=== PATIENT | female | born 1975 | race Caucasian/White ===

== ENCOUNTER 2025-07-07 15:45 | Outpatient (REF) | payer OTHER, BC, SELFPAY ==
--- OUTSIDE RECORDS SUMMARY | 2025-07-02 15:20 | XMS_ITS | Encounter Summary ---
Author Organization [facility] Address [address] [place] [address] Care Team Providers Care Word Processing Specialist Name Role Phone Lauren Choudhary MD Primary Care Provider [phone] Madalyn Peterson Unavailable Enrique Guerrier MD Unavailable [phone] Reason for Visit * ReasonCommentsperimenopause Encounter Details DateTypeDepartmentCare Team (Latest Contact Info)Poohpwecgwa32/20/2025 3:20 PM ESTOffice Visit BALTAZAR BENAVIDES [address] [place] [address] Tiffany Park PA [address] [place], [facility]11 Perimenopause; Vaginal dryness; Yeast infection; Hormone disorder; Tremor Social History Tobacco UseTypesPacks/DayYears UsedDateSmoking Tobacco: FormerCigarettes Smokeless Tobacco: NeverAlcohol UseStandard Drinks/WeekCommentsYes0 (1 standard drink = 0.6 oz pure alcohol)1-2 drinks less than monthly in the past year, Caffeine intake: 1-2 cups per [id number] Health LiteracyAnswerDate RecordedHow often do you need to have someone help you when you read instructions, pamphlets, or other written material from your doctor or pharmacy?Never 02/11/2025Humiliation, Afraid, Rape, and Kick questionnaireAnswerDate Recorded Within the last year, have you been afraid of your partner or ex-partner?No 02/11/2025Within the last year, have you been humiliated or emotionally abused in other ways by your partner or ex-partner?No02/11/2025Within the last year, have you been kicked, hit, slapped, or otherwise physically hurt by your partner or ex-partner?No02/11/2025Within the last year, have you been raped or forced to have any kind of sexual activity by your partner or ex-partner?No02/11/2025 Social Connection and Isolation PanelAnswerDate RecordedIn a typical week, how many times do you talk on the phone with family, friends, or neighbors?More than three times a week02/11/2025How often do you get together with friends or relatives?Once a week02/11/2025How often do you attend baptist or yazidism services?Never02/11/2025Do you belong to any clubs or organizations such as baptist groups, unions, fraternal or athletic groups, or school groups?Yes 02/11/2025How often do you attend meetings of the clubs or organizations you belong to?1 to 4 times per year02/11/2025re you , , , , never , or living with a partner?Cdupfyc2602/11/2025UDIT-C AnswerDate RecordedQ1: How often do you have a drink containing alcohol?2-3 times a week02/11/2025Q2: How many drinks containing alcohol do you have on a typical day when you are drinking?1 or Q3: How often do you have six or more drinks on one occasion?Never02/11/2025Overall Financial Resource Strain (CARDIA)AnswerDate RecordedHow hard is it for you to pay for the very basics like food, housing, medical care, and heating?Not very hard02/11/2025[facility] [place] of Occupational Health - Occupational Stress QuestionnaireAnswerDate RecordedDo you feel stress - tense, restless, nervous, or anxious, or unable to sleep at night because yourmind is troubled all the time - these days?To some msusqk0702/11/2025Exercise Vital SignAnswerDate RecordedOn average, how many days per week do you engage in moderate to strenuous exercise (like a brisk walk)?3 days02/11/2025On average, how many minutes do you engage in exercise at this level?60 min02/11/2025Hunger Vital SignAnswerDate RecordedWithin the past 12 months, you worried that your food would run out before you got the money to buy more.Never true02/11/2025Within the past 12 months, the food you bought just didn't last and you didn't have money to get more.Never true02/11/2025PRAPARE - TransportationAnswerDate RecordedIn the past 12 months, has lack of transportation kept you from medical appointments or from getting medications?No 02/11/2025In the past 12 months, has lack of transportation kept you from meetings, work, or from getting things needed for daily living?No02/11/2025 Housing Stability Vital SignAnswerDate RecordedIn the last 12 months, was there a time when you were not able to pay the mortgage or rent on time?No02/11/2025In the past 12 months, how many times have you moved where you were living?0 02/11/2025t any time in the past 12 months, were you homeless or living in a long-term (including now)?No02/11/2025CommentsNoSex and Gender Information ValueDate RecordedSex Assigned at EehhnWdiqnb73/10/2023 3:43 PM EDTLegal Sex Arxbwx7910/25/2022 6:52 PM EDTGender PisjjvkdEwiobe26/10/2023 3:43 PM EDTSexual RjrklczurwdRcvxspwm71/10/2023 3:43 PM EDTdocumented as of this encounter Last Filed Vital Signs Vital SignReadingTime TakenCommentsBlood Tdopbrev748/8611 3:31 PM EST Pulse--Temperature--Respiratory Rate--Oxygen Saturation--Inhaled Oxygen Concentration--Cldqjk50.4 kg (131 lb)07/02/2025 3:31 PM ESTHeight--Body Mass Index21.1407 2:28 PM EDTdocumented in this encounter Progress Notes * CHARISSA Noriega - 07/02/2025 3:20 PM EST Reason for Appointment: Patient ID: Enriqueta Man is a 50 y.o. female who presents for perimenopause Patient presents today for Perimenopause. MEDICATIONS Current Outpatient Medications Medication Instructions Aspirin Low Dose 81 mg, Every morning atomoxetine (STRATTERA) 25 mg, Oral, Daily, Swallow capsule whole; do not open. If opened accidentally, do not touch eyes; wash hands immediately (product is an eye irritant). buPROPion XL (WELLBUTRIN XL) 300 mg, Oral, Every morning carvedilol (COREG) 3.125 mg, Oral, 2 times daily with meals cholecalciferol (Vitamin D-3) 50 MCG (1999) capsule Oral, Daily Mounjaro 10 mg, Subcutaneous, Weekly Otezla 30 mg, Oral, Every 12 hours OXcarbazepine (TRILEPTAL) 600 mg, Oral, Nightly Rimegepant Sulfate (Nurtec) 75 MG tablet dispersible Take by mouth traZODone (DESYREL) 50 mg, Oral, Nightly ALLERGIES Allergies Allergen Reactions Codeine GI intolerance Nitrofurantoin Unknown PROBLEMS Active Ambulatory Problems Diagnosis Date Noted Brain aneurysm ([facility]) 01/17/2023 Chronic migraine w/o aura w/o status migrainosus, not intractable 01/17/2023 Claustrophobia 01/17/2023 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 01/17/2023 Depression 01/17/2023 Essential hypertension 01/17/2023 Hyperbilirubinemia 01/17/2023 Leukocytosis 01/17/2023 Menorrhagia with irregular cycle 01/17/2023 Mixed hyperlipidemia 01/17/2023 Psoriasis 01/17/2023 Vaginal prolapse 01/17/2023 Vitamin D deficiency 01/17/2023 Resolved Ambulatory Problems Diagnosis Date Noted No Resolved Ambulatory Problems Past Medical History: Diagnosis Date History of thyroid nodule 2007 IUD contraception 2007 Migraine headache Missed ([facility]) ([facility]) HISTORY PAST MEDICAL HISTORY SOCIAL HISTORY Past Medical History: Diagnosis Date History of thyroid nodule 2007 IUD contraception 2008 Paragard Migraine headache Missed ([facility]) x3 ([facility]) x 4 Psoriasis Social History Tobacco Use Smoking status: Former Types: Cigarettes Smokeless tobacco: Never Substance Use Topics Alcohol use: Yes Comment: 1-2 drinks less than monthly in the past year, Caffeine intake: 1-2 cups per day Drug use: Never FAMILY HISTORY Family History Problem Relation Name Age of Onset Brain Aneurysm Mother Cancer Sibling SURGICAL HISTORY Past Surgical History: Procedure Laterality Date BIOPSY negative;Disease:Thyroid nodules BREAST LUMPECTOMY 10/22/2024 SECTION, LOW TRANSVERSE 1997 DILATION AND CURETTAGE 2003 MR ANGIOGRAM HEAD WO IV CONTRAST 06/26/2019 MR ANGIOGRAM HEAD WO IV CONTRAST [facility] MR ANGIOGRAM HEAD WO IV CONTRAST 05/05/2023 MR ANGIOGRAM HEAD WO IV CONTRAST OTHER SURGICAL HISTORY 2007 PELVIC LAPAROSCOPY 2005 diagnostic VAGINAL DELIVERY 1993 REVIEW OF SYSTEMS Review of Systems: Review of Systems All other systems reviewed and are negative. OBJECTIVE Objective: Physical Exam Constitutional: Appearance: Normal appearance. She is well-developed. Cardiovascular: Rate and Rhythm: Normal rate and regular rhythm. Pulmonary: Effort: Pulmonary effort is normal. Breath sounds: Normal breath sounds. Abdominal: General: Bowel sounds are normal. There is no distension. Palpations: Abdomen is soft. Tenderness: There is no abdominal tenderness. There is no guarding or rebound. Musculoskeletal: General: No swelling. Normal range of motion. Right lower leg: No edema. Left lower leg: No edema. Neurological: Mental Status: She is alert and oriented to person, place, and time. Skin: General: Skin is warm and dry. Psychiatric: Mood and Affect: Mood normal. Behavior: Behavior normal. Vitals and nursing note reviewed. Exam conducted with a loom stop checker present. Vitals: Estimated body mass index is 21.14 kg/m?? as calculated from the following: Height as of 02/11/25: 5' 6 . Weight as of this encounter: 131 lb. BP: 130/86 No LMP recorded. Assessment/Plan ICD-10-CM 1. Perimenopause N95.1 Assessment/Plan Patient presents for Perimenopausal symptoms. Patient does have vaginal dryness, Patient encouragedto use coconut oil for this and she was advised we can do labs to see where this is at and that we do have a packet to complete and sent to [facility] and they will do a specific cream based on her answers. Patient aware we will send in Diflucan and we will do cultures at her next visit as she has been having symptoms of this for a while. Patient has noticed some tremors and she has been taking magnesium 500 she started this in March and she noticed some tremors mid day and night but not as severe. Patient states right side worse then left and she does have appointment with Neurology next week and advised to let them know about the Tremors. Patient did have weight loss with Mounjaro, in 2 1/2years has lost over 100 pounds, she is doing this every 2 weeks and she has cut back from the mounjaro. Endocrinology was discussed with patient and discussed Moungaro from Hers website. Patient to return in 1 week for annual and to review labs. Documented by Naina Garcia LPN on behalf of: CHARISSA Noriega documented in this encounter Plan of Treatment NameTypePriorityAssociated DiagnosesOrder ScheduleEstradiolLabRoutine Hormone disorder Ordered: 07/02/2025EstroneLabRoutine Hormone disorder Ordered: 07/02/2025ortisol, freeLabRoutine Hormone disorder Expected: 07/02/2025 (Approximate), Expires: 07/02/2026DHEA-sulfateLabRoutine Hormone disorder Ordered: 07/02/2025Sex hormone binding globulinLabRoutine Hormone disorder Ordered: 07/02/2025Insulin, totalLabRoutine Hormone disorder Expected: 07/02/2025 (Approximate), Expires: 07/02/2026Serotonin serumLabRoutine Hormone disorder Expected: 07/02/2025 (Approximate), Expires: 07/02/2026TSHLabRoutine Hormone disorder Ordered: 07/02/2025T4, freeLabRoutine Hormone disorder Ordered: 07/02/2025T3, reverseLabRoutine Hormone disorder Ordered: 07/02/2025ProgesteroneLabRoutine Hormone disorder Ordered: 07/02/2025Vitamin D 1,25 dihydroxyLabRoutine Hormone disorder Ordered: 07/02/2025FerritinLabRoutine Hormone disorder Ordered: 07/02/2025T3, freeLabRoutine Hormone disorder Ordered: 07/02/2025ThyroglobulinLabRoutine Hormone disorder Expected: 07/02/2025 (Approximate), Expires: 07/02/2026Thyroglobulin AntibodyLab Routine Hormone disorder Expected: 07/02/2025 (Approximate), Expires: 07/02/2026Thyroid peroxidase antibodyLabRoutine Hormone disorder Ordered: 07/02/20252740R9KnnOaskuit Hormone disorder Expected: 07/02/2025 (Approximate), Expires: 07/02/2026TESTOSTERONE, FREELab Routine Hormone disorder Ordered: 07/02/2025Testosterone, free, totalLabRoutine Hormone disorder Ordered: 07/02/2025Hemoglobin V1fKxwRnvekqy Hormone disorder Ordered: 07/02/2025Glucose, randomLabRoutine Hormone disorder Expected: 07/02/2025 (Approximate), Expires: 07/02/2026-peptideLabRoutine Hormone disorder Expected: 07/02/2025 (Approximate), Expires: 07/02/2026documented as of this encounter Procedures Procedure NamePriorityDate/TimeAssociated DiagnosisCommentsPAP TEST, EXTERNAL Hdnscov4306/11/2019 12:00 AM EDTdocumented in this encounter Results * PAP TEST, EXTERNAL (06/11/2019 12:00 AM EDT) Narrative Authorizing ProviderResult TypeResult StatusLauren Choudhary MDLAB CYTOLOGY ORDERABLESFinal ResultPerforming OrganizationAddressCity/State/ZIP CodePhone Number EXTERNAL LAB documented in this encounter Visit Diagnoses Diagnosis Perimenopause Symptomatic menopausal or female climacteric states Vaginal dryness Postmenopausal atrophic vaginitis Yeast infection Hormone disorder Unspecified endocrine disorder Tremor Abnormal involuntary movements documented in this encounter Care Teams Team MemberRelationshipSpecialtyStart DateEnd Date Lauren Choudhary MD [address] [place] [address] PCP - GeneralFamily Medicine12/19/22 Madalyn Peterson PA [address] [place] [address] Physician AssistantNeurology1/ Enrique Guerrier MD [address] [place] [address] Referring PhysicianNeurology1/documented as of this encounter
--- OUTSIDE RECORDS SUMMARY | 2025-07-07 10:00 | XMS_ITS | Encounter Summary ---
Author Organization [facility] Address [address] [place] [address] Care Team Providers Care Hard Metals Hand Engraver Name Role Phone Lauren Choudhary MD Primary Care Provider [phone] Madalyn Peterson Unavailable Enrique Guerrier MD Unavailable [phone] Reason for Visit * ReasonCommentsWell Women Visit Encounter Details DateTypeDepartmentCare Team (Latest Contact Info)Nhmzxxcjubm30/25/2025 10:00 AM ESTProcedure Visit BALTAZAR BENAVIDES [address] [place] [address] Tiffany Park PA [address] [place], [facility]11 Well woman exam with routine gynecological exam; Postmenopausal state; Exposure to STD; Vaginal discharge Social History Tobacco UseTypesPacks/DayYears UsedDateSmoking Tobacco: FormerCigarettes Smokeless Tobacco: NeverAlcohol UseStandard Drinks/WeekCommentsYes0 (1 standard drink = 0.6 oz pure alcohol)1-2 drinks less than monthly in the past year, Caffeine intake: 1-2 cups per [id number] Health LiteracyAnswerDate RecordedHow often do you need [...] week02/11/2025How often do you attend baptist or adventism services?Never02/11/2025Do you belong to any clubs or organizations such as baptist groups, unions, fraternal or athletic groups, or school groups?Yes 02/11/2025How often do you attend meetings of the clubs or organizations you belong to?1 to 4 times per year02/11/2025re you , , , , never , or living with a partner?Yomnrnw9402/11/2025UDIT-C AnswerDate RecordedQ1: How often do you have [...] food, housing, medical care, and heating?Not very hard02/11/2025[facility] [place] of Occupational Health - Occupational Stress QuestionnaireAnswerDate RecordedDo you feel stress - tense, restless, nervous, or anxious, or unable to sleep at night because yourmind is troubled all the time - these days?To some lwqeki4202/11/2025Exercise Vital SignAnswerDate RecordedOn average, how many days [...] were you homeless or living in a detention (including now)?No02/11/2025CommentsNoSex and Gender Information ValueDate RecordedSex Assigned at MhdffAikrxy84/10/2023 3:43 PM EDTLegal Sex Tonhre4310/25/2022 6:52 PM EDTGender MeloqmtdFrchan00/10/2023 3:43 PM EDTSexual CeauptdygahExjdptly05/10/2023 3:43 PM EDTdocumented as of this encounter Last Filed Vital Signs Vital SignReadingTime TakenCommentsBlood Aaoadvwn107/9007/07/2025 10:25 AM EST Pulse--Temperature--Respiratory Rate--Oxygen Saturation--Inhaled Oxygen Concentration--Kbeqvv34.2 kg (130 lb 8 oz)07/07/2025 10:25 AM ESTHeight--Body Mass Index21.0607 2:28 PM EDTdocumented in this encounter Progress Notes * CHARISSA Noriega - 07/07/2025 10:00 AM EST Reason for Appointment: Patient ID: Enriqueta Man is a 50 y.o. female who presents for [facility] Women Visit Patient presents today for Annual Exam. MEDICATIONS Current Outpatient Medications Medication Instructions Aspirin [...] D-3) 50 MCG (1999) capsule Oral, Daily magnesium (as gluconate) (MAGONATE) 27 mg, 2 times daily Mounjaro 10 mg, Subcutaneous, Weekly Otezla 30 mg, Oral, Every 12 hours OXcarbazepine (TRILEPTAL) 600 mg, Oral, Nightly Rimegepant Sulfate (Nurtec) 75 MG tablet dispersible Take by mouth traZODone (DESYREL) 50 mg, Oral, Nightly ALLERGIES Allergies Allergen Reactions Codeine GI intolerance Nitrofurantoin Unknown PROBLEMS Active Ambulatory Problems Diagnosis Date Noted Brain aneurysm ([facility]) 01/17/2023 Chronic migraine w/o aura w/o status [...] 2007 IUD contraception 2007 Migraine headache Missed ([facility]) ([facility]) HISTORY PAST MEDICAL HISTORY SOCIAL HISTORY Past Medical History: Diagnosis Date Brain aneurysm ([facility]) History of thyroid nodule 2008 IUD contraception 2008 Paragard Migraine headache Missed ([facility]) x3 ([facility]) x 4 Psoriasis Social History Tobacco Use [...] SYSTEMS Review of Systems: Review of Systems Constitutional: Negative. HENT: Negative. Eyes: Negative. Respiratory: Negative. Cardiovascular: Negative. Gastrointestinal: Negative. Genitourinary: Negative. Musculoskeletal: Negative. Skin: Negative. Neurological: Negative. All other systems reviewed and are negative. Hematological: Negative. Endocrine: Negative. Allergic/Immunologic: Negative. OBJECTIVE Objective: Physical Exam Constitutional: Appearance: Normal appearance. She is well-developed. Genitourinary: Vulva normal. Right Adnexa: not tender and no mass present. Left Adnexa: not tender and no mass present. No cervical discharge. Breasts: Breasts are soft. Right: Normal. Left: Normal. HENT: Head: Normocephalic. Nose: Nose normal. Mouth/Throat: Mouth: Mucous membranes are moist. Cardiovascular: Rate and Rhythm: Normal rate and regular rhythm. Pulmonary: Effort: Pulmonary effort is normal. Breath sounds: Normal breath sounds. Abdominal: General: Bowel sounds are normal. There is no distension. Palpations: Abdomen is soft. Tenderness: There is no abdominal tenderness. There is no guarding or rebound. Musculoskeletal: General: No swelling. Normal range of motion. Cervical back: Normal range of motion. Right lower leg: No edema. Left lower leg: No edema. Neurological: General: No focal deficit present. Mental Status: She is alert and oriented to person, place, and time. Skin: General: Skin is warm and dry. Psychiatric: Mood and Affect: Mood normal. Behavior: Behavior normal. Vitals and nursing note reviewed. Exam conducted with a heat and frost insulator helper present. Vitals: Estimated body mass index is 21.14 kg/m?? as calculated from the following: Height as of 02/11/25: 5' 6 . Weight as of 07/02/25: 131 lb. BP: No LMP recorded. Patient is perimenopausal. Assessment/Plan ICD-10-CM 1. Well woman exam with routine gynecological exam Z01.419 THIN PREP TIS PAP AND HR HPV DNA 2. Postmenopausal state Z78.0 DEXA bone density Assessment/Plan Annual Exam: Patient presents today for an annual exam. Patient states she is doing well and has no complaints. Pap was obtained without difficulty. Cultures obtained today without difficulty. Patient is advised we are waiting on some of her labs from [facility] reviewed labs with patient that we have on fine. Orders Placed This Encounter Procedures DEXA bone density Follow Up: Patient is to return in one year for annual unless needed otherwise. Documented by Naina Garcia LPN on behalf of: CHARISSA Noriega documented in this encounter Plan of Treatment NameTypePriorityAssociated DiagnosesOrder ScheduleDEXA bone densityImaging Routine Postmenopausal state Expected: 07/07/2025 (Approximate), Expires: 07/07/2026THIN PREP TIS PAP AND HR HPV DNAPathology and CytologyRoutine Well woman exam with routine gynecological exam Ordered: 07/07/2025SURESWAB(R) ADVANCED VAGINITIS PLUS, TMAPathology and CytologyRoutine Vaginal discharge Ordered: 07/07/2025HLAMYDIA TRACHOMATIS (GENITO/STI)LabRoutine Exposure to STD Ordered: 07/07/2025Neisseria gonorrhea DNA probe, directLabRoutine Exposure to STD Ordered: 07/07/2025documented as of this encounter Visit Diagnoses Diagnosis Well woman exam with routine gynecological exam Routine gynecological examination Postmenopausal state Asymptomatic postmenopausal status (age-related) (natural) Exposure to STD Vaginal discharge Leukorrhea, not specified as infective documented in this encounter Care Teams Team MemberRelationshipSpecialtyStart DateEnd Date Lauren Choudhary MD [address] [place] [address] PCP - GeneralFamily Medicine12/19/22 Madalyn Peterson PA [address] [place] [address] Physician AssistantNeurology1/ Enrique Guerrier MD [address] [place] [address] Referring PhysicianNeurology1/documented as of this encounter
--- OUTSIDE RECORDS SUMMARY | 2025-07-07 15:54 | XMS_ITS | Encounter Summary ---
Author Organization [facility] Address [address] [place] [address] Care Team Providers Care Prison Librarian Name Role Phone Lauren Choudhary MD Primary Care Provider [phone] Madalyn Peterson Unavailable Enrique Guerrier MD Unavailable [phone] Encounter Details DateTypeDepartmentCare Team (Latest Contact Info)Ilabtmdxjtd57/24/2025Travel Social History Tobacco UseTypesPacks/DayYears UsedDateSmoking Tobacco: FormerCigarettes Smokeless Tobacco: NeverAlcohol UseStandard Drinks/WeekCommentsYes0 (1 standard drink = 0.6 oz pure alcohol)1-2 drinks less than monthly in the past year, Caffeine intake: 1-2 cups per [id number] Health LiteracyAnswerDate RecordedHow often do you need [...] relatives?Once a week02/11/2025How often do you attend denominational or rastafari services?Never02/11/2025Do you belong to any clubs or organizations such as denominational groups, unions, fraMyGeekDay or athletic groups, or school groups?Yes 02/11/2025How often do you attend meetings of the clubs or organizations you belong to?1 to 4 times per year02/11/2025re you , , , , never , or living with a partner?Ulahzng5102/11/2025UDIT-C AnswerDate RecordedQ1: How often do you have [...] care, and heating?Not very hard02/11/2025[facility] [place] of [facility] Health - Occupational Stress QuestionnaireAnswerDate RecordedDo you feel stress - tense, restless, nervous, or anxious, or unable to sleep at night because yourmind is troubled all the time - these days?To some ibdsgu0102/11/2025Exercise Vital SignAnswerDate RecordedOn average, how many days [...] were you homeless or living in a intermediate (including now)?No02/11/2025CommentsNoSex and Gender Information ValueDate RecordedSex Assigned at AatiqChspzl48/10/2023 3:43 PM EDTLegal Sex Cczona2610/25/2022 6:52 PM EDTGender IrwouoxdQkdawh65/10/2023 3:43 PM EDTSexual AeqrormhoaiFkvmzobb73/10/2023 3:43 PM EDTdocumented as of this encounter Plan of Treatment Not on file documented as of this encounter Visit Diagnoses Not on filedocumented in this encounter Care Teams Team MemberRelationshipSpecialtyStart DateEnd Date Lauren Choudhary MD [address] [place] [address] PCP - GeneralFamily Medicine12/19/22 Madalyn Peterson PA [address] [place] [address] Physician AssistantNeurology1 Enrique Guerrier MD [address] [place] [address] Referring PhysicianNeurology1/documented as of this encounter
--- OUTSIDE RECORDS SUMMARY | 2025-07-07 15:54 | XMS_ITS | Clinical Summary ---
Author Organization [facility] Address [address], [address] [place] [address] Care Team Providers Care Wide Area Network Administrator Name Role Phone Lauren Choudhary MD Primary Care Provider [phone] Allergies Active AllergyReactionsCriticalityNoted DateCommentsCodeineNausea Only09/30/2024 NitrofurantoinOther (See Comments)High09/30/2024 Liver failure Oxycodone-DbommjqraqghgKbzusrxgp34/18/2025 Medications MedicationSigDispense QuantityRefillsLast FilledStart DateEnd DateStatus Apremilast (OTEZLA) 30 MG TABS Take 300 mg by mouth in the morning and 300 mg in the evening.Active ASPIRIN 81 PO Take 81 mg by mouth daily09/16/2022ctive buPROPion (WELLBUTRIN XL) 150 MG extended release tablet Take 1 tablet by mouth every tfqxxzi1411/08/2023ctive vitamin D (VITAMIN D3) 50 MCG (1999) CAPS capsule Take 50 mcg by mouth daily07/01/2024ctive OXcarbazepine (TRILEPTAL) 300 MG tablet Take 1 tablet by mouthActive rimegepant sulfate (NURTEC) 75 MG TBDP Take 75 mg by mouth as neededActive Tirzepatide (MOUNJARO) 10 MG/0.5ML SOAJ Inject 10 mg into the skin once a week06/23/2024ctive traZODone (DESYREL) 50 MG tablet Take 1 tablet by mouth nightlyActive Social History Tobacco UseTypesPacks/DayYears UsedDateSmoking Tobacco: Never Assessed CommentsUnknownSex and Gender InformationValueDate RecordedSex Assigned at Pmzryo6609/24/2024 9:59 AM ESTLegal RjgGfibeg00/12/2025 9:58 AM ESTGender Identity Njtmww5809/24/2024 9:59 AM ESTSexual AretiukjpenRhoxxljj58/15/2025 9:27 PM EST Last Filed Vital Signs Vital SignReadingTime TakenCommentsBlood Cjuvqvss424/9109/30/2024 9:39 AM EST Dwkab30805/18/2025 9:39 AM ESTTemperature--Respiratory Mtjs1233 9:39 AM ESTOxygen Saturation--Inhaled Oxygen Concentration--Weight--Height--Body Mass Index-- Plan of Treatment Health MaintenanceDue DateLast DoneCommentsDepression Inrgkx0104/14/1987HIV screen 1990Hepatitis C nacpgo1704/14/1993DTaP/Tdap/Td vaccine (1 - Tdap)1994 Hepatitis B vaccine (1 of 3 - 19+ 3-dose series)1994Pap smear1996 Cervical cancer zpgttb4504/14/2005HPV (without or with Pap)2005Lipids 04/14/20159536Feyqitmtulm23/02/2020Colorectal Cancer Oopdse9804/14/2020FIT/FOBT: Average risk2020Fecal-DNA (Cologuard): Average risk2020 Sigmoidoscopy/CT rlgjvvbohwji20/02/2020Breast cancer roaxvi02/10/2021, 07/02/2020, 08/09/2018Flu vaccine (#1)COVID-19 Vaccine ( - 2023- season)2025Pneumococcal 50+ years Vaccine (1 of 1 - PCV)2025 Shingles vaccine (1 of 2)2025Hepatitis A vaccineAged OutNo longer eligible based on patient's age to complete this topicHib vaccineAged OutNo longer eligible based on patient's age to complete this topicMeningococcal (ACWY) vaccineAged OutNo longer eligible based on patient's age to complete this topic Meningococcal B vaccineAged OutNo longer eligible based on patient's age to complete this topicPolio vaccineAged OutNo longer eligible based on patient's age to complete this topic Insurance Care Teams Team MemberRelationshipSpecialtyStart DateEnd Date Lauren Choudhary MD [address] [place] [address] [facility]
--- OUTSIDE RECORDS SUMMARY | 2025-07-07 15:54 | XMS_ITS | Clinical Summary ---
Author Organization [employer] Address [id number] [address] [place] [address] Care Team Providers Care Station Worker Name Role Phone Unavailable Primary Care Provider Unavailabl e Allergies Active AllergyReactionsCriticalityNoted DateCommentsCodeineNausea And Vomiting, Other (See Comments)05/02/2022Nitrofurantoin Monohyd/M-Cryst05/02/2022 Other reaction(s): ALYSE Medications MedicationSigDispense QuantityRefillsLast FilledStart DateEnd DateStatus OTEZLA 30 mg tablet Take 1 tablet (30 mg total) by mouth in the morning and 1 tablet (30 mg total) before bedtime.09/09/2022ctive buPROPion XL (WELLBUTRIN XL) 150 mg 24 hr tablet 08/21/2022ctive carvediloL (COREG) 3.125 mg tablet Take 1 tablet (3.125 mg total) by mouth in the morning and 1 tablet (3.125 mg total) in the evening. Take with meals.07/30/2022ctive VITAMIN D3 50 mcg (2,000 unit) capsule Take 1 capsule (2,000 Units total) by mouth in the morning.08/08/2022ctive OXcarbazepine (TRILEPTAL) 600 mg tablet Take 0.5 tablets (300 mg total) by mouth nightly.08/30/2022ctive MOUNJARO 7.5 mg/0.5 mL pen injector Inject 10 mg under the skin once a week.09/14/2022ctive traZODone (DESYREL) 50 mg tablet 07/31/2022ctive acetaminophen (TYLENOL) 325 mg tablet Take 2 tablets (650 mg total) by mouth every 6 (six) hours as needed for pain. 30 tablet 11/07/2022ctive Additional Information Patient not taking.Reported on 02/17/2025 calcipotriene-betamethasone (ENSTILAR) 0.005-0.064 % foam 02/09/2023ctive NURTEC ODT 75 mg tablet,disintegrating 08/10/2023ctive aspirin 81 mg Take 1 tablet (81 mg total) by mouth.Active atomoxetine (STRATTERA) 25 mg capsule Take 1 capsule (25 mg total) by mouth in the morning.5Active Active Problems ProblemNoted DateDiagnosed DateCerebral drybwjdo01/16/2025rain aneurysm 01/17/2023Menorrhagia with irregular cycle01/17/2023Vaginal zjeqfzvz08/07/2023 Unruptured cerebral kywxnply99/07/2023lass 1 ozarkxt5701/30/2022Non-refractory chronic migraine without aura108/14/2020eformity of metatarsal bone of right foot11/15/20204703Zqahrgkobfjlbq82/11/2019Morbid kwgyosy2608/19/2018Vitamin D elpbsyxixq41/24/9097Hzplymkwyspm07/03/9551Nwcetuiwhwasrxiydx04/26/2017Psoriasis 10/27/2016Essential egmttejhjwkv18/29/2015Mixed bnhwixgcnryusq67/23/2015 Njrbbqpihg07/23/1043Nntivsshstby60/23/2015 Immunizations ImmunizationAdministration DatesNext DueInfluenza, Injectable, quadrivalent (PF) 06/05/2018 Social History Tobacco UseTypesPacks/DayYears UsedDateSmoking Tobacco: FormerCigarettes Smokeless Tobacco: Never Tobacco Cessation:Counseling Given: Not Answered Alcohol UseStandard Drinks/WeekCommentsYes0 (1 standard drink = 0.6 oz pure alcohol)occPHQ-2AnswerDate RecordedTotal Iuvwc166hildcareAnswerDate OwggboyaCyhzhtiadZfihmis37/10/2019EmploymentAnswerDate RecordedEmploymentUnknown 01/20/2019CommentsNoSex and Gender InformationValueDate RecordedSex Assigned at XgnreQwkwwi10/08/2023 3:56 PM ESTLegal GwtEhlyod96/04/2015 4:08 PM EDTGender ZerttrhqWmjqwk27/08/2023 3:56 PM ESTSexual OrientationStraight 09/20/2022 3:56 PM EST Last Filed Vital Signs Vital SignReadingTime TakenCommentsBlood Igogjjsh287/9702/17/2025 3:41 PM EDT Vlpdf5047/08/2025 3:41 PM CRPUvsuluiagpp31.6 ??C (97.8 ??F)02/17/2025 2:00 PM EDTRespiratory Tbgs918802/17/2025 3:24 PM EDTOxygen Glotapljhw808%02/17/2025 3:24 PM EDTInhaled Oxygen Concentration--Fiiwqo90.8 kg (145 lb 1 oz)02/17/2025 10:23 AM DPPGjlvzx525.6 cm (5' 5.98 )02/17/2025 10:23 AM EDTBody Mass Index23.43 02/17/2025 10:23 AM EDT Plan of Treatment Health MaintenanceDue DateLast DoneCommentsDTaP,Tdap and Td Vaccines (1 - Tdap) 1994Pap Smear1996Depression Eyfspgeao86/05/2023Tobacco Qsyczqlga97/Influenza Bghnjhm31/Zoster (Shingles) Vaccine (1 of 2)2025dult BMI [id number] Medical Devices ImplantedTypeAreaManufacturerDevice IdentifierShelf Expiration DateModel / Serial / LotCoil Embl 8cm 3mm .0108in - [id number] Implanted:Qty: 1 on 11/06/2022 by [facility] MDTR NEUR F/NEURO [id number] / / [id number] Intrcran 21mm 4mm Nrfrm Atls Strl Lf Rpl [id number] - [id number] Implanted:Qty: 1 on 11/06/2022 by Sweta Raymond MD at [facility] [id number] / / Stent Intrcran 24mm 4mm Nrfrm Atls Strl Lf Rpl [id number] - [id number] Implanted:Qty: 1 on 11/06/2022 by Sweta Raymond MD at [facility] [id number] / / [id number] Insurance Advance Directives * Full Code (Latest Code Status on File) Date ActivatedDate InactivatedComments11/06/2022 3:12 PM11/07/2022 5:00 PM
--- OUTSIDE RECORDS SUMMARY | 2025-07-07 15:55 | XMS_ITS | Encounter Summary ---
Author Organization [facility] Address [address] [place] [address] Care Team Providers Care Navigation Teacher Name Role Phone Lauren Choudhary MD Primary Care Provider [phone] Madalyn Peterson Unavailable Enrique Guerrier MD Unavailable [phone] Encounter Details DateTypeDepartmentCare Team (Latest Contact Info)Httxqpznncx11/24/2025bstract [facility] [address] [address] Tiffany Park PA [address] [place], [facility] Social History Tobacco UseTypesPacks/DayYears UsedDateSmoking Tobacco: FormerCigarettes Smokeless Tobacco: NeverAlcohol UseStandard Drinks/WeekCommentsYes0 (1 standard drink = 0.6 oz pure alcohol)1-2 drinks less than monthly in the past year, Caffeine intake: 1-2 cups per [id number] Health LiteracyAnswerDate RecordedHow often do you need [...] relatives?Once a week02/11/2025How often do you attend mandaen or adventist services?Never02/11/2025Do you belong to any clubs or organizations such as mandaen groups, unions, fraSpartan Bioscience or athletic groups, or school groups?Yes 02/11/2025How often do you attend meetings of the clubs or organizations you belong to?1 to 4 times per year02/11/2025re you , , , , never , or living with a partner?Sfrrvvx9402/11/2025UDIT-C AnswerDate RecordedQ1: How often do you have [...] food, housing, medical care, and heating?Not very hard02/11/2025[employer] [place] [employer]ational [employer] - Occupational Stress QuestionnaireAnswerDate RecordedDo you feel stress - tense, restless, nervous, or anxious, or unable to sleep at night because yourmind is troubled all the time - these days?To some zxncaa2002/11/2025Exercise Vital SignAnswerDate RecordedOn average, how many days [...] were you homeless or living in a halfway (including now)?No02/11/2025CommentsNoSex and Gender Information ValueDate RecordedSex Assigned at LowvbOdhdcq52/10/2023 3:43 PM EDTLegal Sex Rpfcaq2710/25/2022 6:52 PM EDTGender SiegnvkpMawwzc58/10/2023 3:43 PM EDTSexual JsbbktvyctlMyqunhnz34/10/2023 3:43 PM EDTdocumented as of this encounter Plan of Treatment Not on file documented as of this encounter Visit Diagnoses Not on filedocumented in this encounter Care Teams Team MemberRelationshipSpecialtyStart DateEnd Date Lauren Choudhary MD [address] [place] [address] PCP - GeneralFamily Medicine12/19/22 Madalyn Peterson PA [address] [place] [address] Physician AssistantNeurology1/ Enrique Guerrier MD [address] [place] [address] Referring PhysicianNeurology1/documented as of this encounter
--- OUTSIDE RECORDS SUMMARY | 2025-07-07 15:55 | XMS_ITS | Encounter Summary ---
Author Organization [facility] Address [address] [place] [address] Care Team Providers Care Salesperson New Cars Name Role Phone Lauren Choudhary MD Primary Care Provider [phone] Madalyn Peterson Unavailable Enrique Guerrier MD Unavailable [phone] Encounter Details DateTypeDepartmentCare Team (Latest Contact Info)Hyqxfygcmey90/24/2025Telephone [facility] [address] [address] Tiffany Park PA [address] [place], [facility]11 Social History Tobacco UseTypesPacks/DayYears UsedDateSmoking Tobacco: FormerCigarettes Smokeless Tobacco: NeverAlcohol UseStandard Drinks/WeekCommentsYes0 (1 standard drink = 0.6 oz pure alcohol)1-2 drinks less than monthly in the past year, Caffeine intake: 1-2 cups per [id number] Health LiteracyAnswerDate RecordedHow often do you need [...] relatives?Once a week02/11/2025How often do you attend bahai or synagogue services?Never02/11/2025Do you belong to any clubs or organizations such as bahai groups, unions, fraContextbroker or athletic groups, or school groups?Yes 02/11/2025How often do you attend meetings of the clubs or organizations you belong to?1 to 4 times per year02/11/2025re you , , , , never , or living with a partner?Fkvucte8902/11/2025UDIT-C AnswerDate RecordedQ1: How often do you have [...] housing, medical care, and heating?Not very hard02/11/2025[employer] [place] [employer] Occupational Health - Occupational Stress QuestionnaireAnswerDate RecordedDo you feel stress - tense, restless, nervous, or anxious, or unable to sleep at night because yourmind is troubled all the time - these days?To some vjombh2102/11/2025Exercise Vital SignAnswerDate RecordedOn average, how many days [...] were you homeless or living in a usp (including now)?No02/11/2025CommentsNoSex and Gender Information ValueDate RecordedSex Assigned at CozgaKoovij00/10/2023 3:43 PM EDTLegal Sex Dsveut5410/25/2022 6:52 PM EDTGender PdfdyztwRplopa09/10/2023 3:43 PM EDTSexual ZxfimgnzzehJjiixkpc19/10/2023 3:43 PM EDTdocumented as of this encounter Miscellaneous Notes * Telephone Encounter - Naina Garcia LPN - 07/07/2025 8:44 AM EST [place] [facility] [place] and asked if labs are back and these are pending at this time. Not placed on patient chart. * Telephone Encounter - Naina Garcia LPN - 07/06/2025 11:12 AM EST I have an appointment tomorrow with Tiffany. I have labs that were done. I was in I seen her on , she ordered lab work, which I had done Sunday at [facility]. It was recommended that I call today and verify yes, they were drawn on Sunday at [facility] because your office may need to make contact with them in order to get the results by tomorrow, I believe for my appointment. So that is all I was doing calling to inform that those were done Sunday morning. If you move anything further,my numbers [phone]. Thank you. Called and spoke with [facility] [place] regards to [place] and these are not all back at this time. Patient was called and made aware of this and will continue to follow up on these. PVU documented in this encounter Plan of Treatment Not on file documented as of this encounter Visit Diagnoses Not on filedocumented in this encounter Care Teams Team MemberRelationshipSpecialtyStart DateEnd Date Lauren Choudhary MD [address] [place] [address] PCP - GeneralFamily Medicine12/19/22 Madalyn Peterson PA [address] [place] [address] Physician AssistantNeurology1 Enrique Guerrier MD [address] [place] [address] Referring PhysicianNeurology1/documented as of this encounter
--- OUTSIDE RECORDS SUMMARY | 2025-07-07 15:55 | XMS_ITS | Clinical Summary ---
Author Organization [facility] Address [address] [place] [address] Care Team Providers Care Adoption Manager Name Role Phone Lauren Choudhary MD Primary Care Provider [phone] Madalyn Peterson Unavailable Enrique Guerrier MD Unavailable [phone] Allergies Active AllergyReactionsCriticalityNoted DateCommentsCodeineGI intolerance 01/17/20235262MuilqntdxpclbqHwyghzn38/07/2023 Medications MedicationSigDispense QuantityRefillsLast FilledStart DateEnd DateStatus Aspirin Low Dose 81 MG EC tablet Take 81 mg by mouth in the morning.Active Rimegepant Sulfate (Nurtec) 75 MG tablet dispersible Take by mouthActive atomoxetine (Strattera) 25 MG capsule Indications:Attention deficit hyperactivity disorder (ADHD), unspecified ADHD typeTake 1 capsule (25 mg) by mouth Daily Swallow capsule whole; do not open. If opened accidentally, do not touch eyes; wash hands immediately (product is an eye irritant). 30 capsule 5Active carvedilol (Coreg) 3.125 MG tablet Indications:Essential hypertensionTake 1 tablet (3.125 mg) by mouth in the morning and 1 tablet (3.125 mg) in the evening. Take with meals. 180 tablet /6Active apremilast (Otezla) 30 MG tablet Indications:Chronic migraine w/o aura w/o status migrainosus, not intractable Take 1 tablet (30 mg) by mouth every 12 (twelve) hours 180 tablet /ctive OXcarbazepine (Trileptal) 600 MG tablet Indications:Chronic migraine w/o aura w/o status migrainosus, not intractable Take 1 tablet (600 mg) by mouth at bedtime 90 tablet /ctive traZODone (Desyrel) 50 MG tablet Indications:AnxietyTake 1 tablet (50 mg) by mouth at bedtime 90 tablet //ctive buPROPion XL (Wellbutrin XL) 300 MG 24 hr tablet Indications:AnxietyTake 1 tablet (300 mg) by mouth in the morning. 90 tablet 6Active Tirzepatide (Mounjaro) 10 MG/0.5ML solution auto-injector Indications:Essential hypertensionInject 10 mg under the skin 1 (one) time per week 2 mL 5Active cholecalciferol (Vitamin D-3) 50 MCG (1999 UT) capsule Indications:Vitamin D deficiencyTAKE 1 CAPSULE DAILY 90 capsule 5Active magnesium, as gluconate, (Magonate) 500 (27 Mg) MG tablet Take 27 mg by mouth in the morning and 27 mg before bedtime.Active Enstilar 0.005-0.064 % foam Discontinued fluconazole (Diflucan) 150 MG tablet Indications:Yeast infectionTake 1 tablet (150 mg) by mouth 1 (one) time for 1 dose This is a 1 time dose, take single tablet by mouth. 1 tablet Expired Active Problems ProblemNoted DateDiagnosed DateBrain aneurysm ([facility])01/17/2023hronic migraine w/o aura w/o status migrainosus, not sbcwnfehxcp94/07/2023 Gmobwyznnstgqo51/07/2023eformity of metatarsal bone of right foot01/17/2023 Ngzcrzdhkr40/07/2023Essential koyzcbrhnglk21/07/2577Pyqcfwjvunacippstb05/07/2023 Txnzejoyxelh05/07/2023Menorrhagia with irregular cycle01/17/2023Mixed wfgttrckjlbywy97/07/6581Okrcdmccr47/07/2023Vaginal piryaguv62/07/2023Vitamin D tplpcttryn45/07/2023 Encounters DateTypeDepartmentCare WkjvKwxxbwajbmg33/25/2025 10:00 AM ESTProcedure Visit [facility] [address] [place] [address] Tiffany Park PA Well woman exam with routine gynecological exam; Postmenopausal state; Exposure to STD; Vaginal pfgyowmod98/25/2025amboo flowsheet [facility] [address] [facility] [place] [address] Tiffany Park PA 07/06/2025Telephone [facility] [address] [facility] [place] [address] Tiffany Park PA 07/06/20255591Fcyelq55/24/2025bstract [facility] [address] [facility] [place] [address] Tiffany Park PA 07/02/2025 3:20 PM ESTOffice Visit [facility] [address] [facility] [place] [address] Tiffany Park PA Perimenopause; Vaginal dryness; Yeast infection; Hormone disorder; Dyaqxd9407/02/2025amboo flowsheet [facility] [address] [facility] [place] [address] Tiffany Park PA 06/30/20252068Zwnajn75/22/2025Refill [facility] [address] [place] [id number] Lauren Choudhary MD Vitamin D deficiencyfrom Last 3 Months Immunizations ImmunizationAdministration DatesNext DueInfluenza, injectable, quadrivalent, preservative free06/05/2018 Family History Medical HistoryRelationNameCommentsBrain AneurysmMotherCancerSiblingRelationName StatusCommentsDaughter3, healthyMotherDeceasedSiblingSon1 Social History Tobacco UseTypesPacks/DayYears UsedDateSmoking Tobacco: FormerCigarettes Smokeless Tobacco: NeverAlcohol UseStandard Drinks/WeekCommentsYes0 (1 standard drink = 0.6 oz pure alcohol)1-2 drinks less than monthly in the past year, Caffeine intake: 1-2 cups per [id number] Health LiteracyAnswerDate RecordedHow often do you need [...] relatives?Once a week02/11/2025How often do you attend moravian or alevism services?Never02/11/2025Do you belong to any clubs or organizations such as moravian groups, unions, fraternal or athletic groups, or school groups?Yes 02/11/2025How often do you attend meetings of the clubs or organizations you belong to?1 to 4 times per year02/11/2025re you , , , , never , or living with a partner?Ekewmuu3602/11/2025UDIT-C AnswerDate RecordedQ1: How often do you have [...] food, housing, medical care, and heating?Not very hard02/11/2025[facility] of Occupational Health - Occupational Stress QuestionnaireAnswerDate RecordedDo you feel stress - tense, restless, nervous, or anxious, or unable to sleep at night because yourmind is troubled all the time - these days?To some pqjujs9702/11/2025Exercise Vital SignAnswerDate RecordedOn average, how many days [...] were you homeless or living in a long term (including now)?No02/11/2025CommentsNoSex and Gender Information ValueDate RecordedSex Assigned at QztomUxoeuv66/05/2023 3:43 PM EDTLegal Sex Keuncz8110/25/2022 6:52 PM EDTGender JyqarqggLceowu03/10/2023 3:43 PM EDTSexual KyyeeoyvxrfKyzedhef57/10/2023 3:43 PM EDT Last Filed Vital Signs Vital SignReadingTime TakenCommentsBlood Wkydmnxq483/9007/07/2025 10:25 AM EST Okhhz528402/11/2025 2:28 PM XEROcehzaflpgw73.1 ??C (98.7 ??F)02/11/2025 2:28 PM EDTRespiratory Nmxt561609/09/2024 3:00 PM ESTOxygen Djzgselnaw62%02/11/2025 2:28 PM EDTInhaled Oxygen Concentration--Qkwzsm54.2 kg (130 lb 8 oz)07/07/2025 10:25 AM QEJQpinbb767.6 cm (5' 6 )02/11/2025 2:28 PM EDTBody Mass Index21.0602/11/2025 2:28 PM EDT Plan of Treatment Health MaintenanceDue DateLast DoneCommentsCT Jvglxosyxqni1975Colonoscopy 1975FIT1975FOBT1975 1383Fuwbppdphzloj1975Pap Smear06/11/2022 06/11/2019Cervical Cancer Iyifrsdgy11/30/2024HPV/Tttphj83 COVID-19 Vaccine ( season)2025Influenza Vaccine (#1)2025 06/05/2018Colorectal Cancer Lzvxzhiqx77/17/2026FIT-DNA Meqnbznmw35, 09/02/2024, 10/13/2021, Additional history exists Pneumococcal Vaccine: Pediatrics (0 to 5 Years) and At-Risk Patients (6 to 64 Years)Aged OutNo longer eligible based on patient's age to complete this topic Procedures Procedure NamePriorityDate/TimeAssociated DiagnosisCommentsBI MAMMOGRAM DIAGNOSTIC TOMOSYNTHESIS SFJMJHLWLGedlned06/15/2025 11:33 AM EDT Abnormal mammogram LAB COLOGUARD?? COLON CANCER BDQTCAXprzbhq63/17/2023 Q - THINPREP(R) TIS AND HPV MRNA E6/O3Nyxzzwe56/30/2019 PAP TEST, ILFGXUUOVkrpweg60/30/2019 12:00 AM EDTfrom Last 3 Months or Most Recently Relevant to Health Maintenance Results * Bilateral diagnostic mammogram with tomosynthesis (03/27/2025 11:33 AM EDT) Narrative Authorizing ProviderResult TypeResult Veronica Choudhary MDIMG BI PROCEDURES Final Result * Cologuard?? colon cancer screening (12/27/2022)ComponentValueRef RangeTest MethodAnalysis TimePerformed AtPathologist SignatureCOLOGUARD RESULT REPORTABLECancelled - Order ExpiredNot ApplicableNOMS [facility]GAC[facility] EXTERNAL [facility] Specimen (Source)Anatomical Location / LateralityCollection Method / Volume Collection TimeReceived Time12/27/2022 Narrative Authorizing ProviderResult TypeResult Veronica MICHAUD MOLECULAR DIAGNOSTICS ORDERABLESFinal ResultPerforming OrganizationAddressCity/State/ZIP CodePhone Number [facility] * PAP TEST, EXTERNAL (06/11/2019 12:00 AM EDT) Narrative Authorizing ProviderResult TypeResult Veronica MICHAUD CYTOLOGY ORDERABLESFinal ResultPerforming OrganizationAddressCity/State/ZIP CodePhone Number EXTERNAL LAB * Q - THINPREP(R) TIS AND HPV MRNA E6/E7 (06/11/2019)ComponentValueRef RangeTest MethodAnalysis TimePerformed AtPathologist SignatureCLINICAL INFORMATION:None givenNOMS LEGACY EXTERNAL LABLMP:NONE GIVENNOMS LEGACY EXTERNAL LABPREV. PAP: NONE GIVENNOMS LEGACY EXTERNAL LABPREV. BX:NONE GIVENNOMS LEGACY EXTERNAL LAB SOURCE:None givenNOMS LEGACY EXTERNAL LABSTATEMENT OF ADEQUACY:SEE NOTENOMS LEGACY EXTERNAL LABComment: Satisfactory for evaluation. Endocervical/transformation zone component absent. Satisfactory for evaluation. Endocervical/transformation zone component absent. INTERPRETATION/RESULT:Negative for intraepithelial lesion or malignancy.[facility] EXTER[facility] LABINFECTION:Fungal organisms morphologically consistent with Kelli spp.[facility] EXTER[facility] LABCOMMENT:This Pap test has been evaluated with computer assisted technology.[facility] EXTERNAL LABCYTOTECHNOLOGIST:SEE NOTESee Note:[facility] EXTERNAL LABComment: Reference Range: ZL, CT(ASCP) CT screening location: [place] [address]. Reference Range: ZL, CT(ASCP) CT screening location: [place] [address]. COMMENTSEE NOTENOASTRIA TOPPENISH [facility] EXTERNAL LABComment: EXPLANATORY NOTE: The Pap is a screening test for cervical cancer. It is not a diagnostic test and is subject to false negative and false positive results. It is most reliable when a satisfactory sample, regularly obtained, is submitted with relevant clinical findings and history, and when the Pap result is evaluated along with historic and current clinical information. EXPLANATORY NOTE: The Pap is a screening test for cervical cancer. It is not a diagnostic test and is subject to false negative and false positive results. It is most reliable when a satisfactory sample, regularly obtained, is submitted with relevant clinical findings and history, and when the Pap result is evaluated along with historic and current clinical information. HPV MRNA E6/E7Not DetectedNot DetectedEASTERN STATE HOSPITAL EXTERNAL LABComment: This test was performed using the APTIMA HPV Assay ([employer] This assay detects E6/E7 viral messenger RNA (mRNA) from 14 high-risk HPV types (16,18,31,33,35,39,45,51,52,56,58,59,66,68). The analytical performance characteristics of this assay have been determined by [employer]. The modifications have not been cleared or approved by the FDA. This assay has been validated pursuant to the CLIA regulations and is used for clinical purposes. This test was performed using the APTIMA HPV Assay ([employer] This assay detects E6/E7 viral messenger RNA (mRNA) from 14 high-risk HPV types (16,18,31,33,35,39,45,51,52,56,58,59,66,68). The analytical performance characteristics of this assay have been determined by [employer]. The modifications have not been cleared or approved by the FDA. This assay has been validated pursuant to the CLIA regulations and is used for clinical purposes. Specimen (Source)Anatomical Location / LateralityCollection Method / Volume Collection TimeReceived Time06/11/2019 Narrative Authorizing ProviderResult TypeResult StatusLauren Choudhary MDECTarik LABSFinal ResultPerforming OrganizationAddressCity/State/ZIP CodePhone Number [facility] from Last 3 Months or Most Recently Relevant to Health Maintenance Insurance * Guarantor: Enriqueta Man TypeRelation to PatientDate of PhoneBilling AddressPersonal/PcljryKgic1975 [facility] [address] [place] [address] Care Teams Team MemberRelationshipSpecialtyStart DateEnd Date Lauren Choudhary MD [address] [place] [address] PCP - GeneralFawyly Medicine12/19/22 Madalyn Peterson PA [address] [place] [address] Physician AssistantNeurology1/ Enrique Guerrier MD [address] [place] [address] Referring PhysicianNeurology1/
--- OUTSIDE RECORDS SUMMARY | 2025-07-07 15:55 | XMS_ITS | Encounter Summary ---
Author Organization [facility] Address [address] [place] [address] Care Team Providers Care Paper Gluing Operator Name Role Phone Lauren Choudhary MD Primary Care Provider [phone] Madalyn Peterson Unavailable Enrique Guerrier MD Unavailable [phone] Encounter Details DateTypeDepartmentCare Team (Latest Contact Info)Zmwteqvubxs18/20/2025amboo flowsheet [facility] [address] [facility] [place] [address] Tiffany Park PA [address] [place], [facility] Social History Tobacco UseTypesPacks/DayYears UsedDateSmoking Tobacco: FormerCigarettes Smokeless Tobacco: NeverAlcohol UseStandard Drinks/WeekCommentsYes0 (1 standard drink = 0.6 oz pure alcohol)1-2 drinks less than monthly in the past year, Caffeine intake: 1-2 cups per [id number] Health LiteracyAnswerDate RecordedHow often do you need [...] relatives?Once a week02/11/2025How often do you attend anglican or latter-day services?Never02/11/2025Do you belong to any clubs or organizations such as anglican groups, unions, fraBugHerd or athletic groups, or school groups?Yes 02/11/2025How often do you attend meetings of the clubs or organizations you belong to?1 to 4 times per year02/11/2025re you , , , , never , or living with a partner?Aavhroe5602/11/2025UDIT-C AnswerDate RecordedQ1: How often do you have [...] housing, medical care, and heating?Not very hard02/11/2025[employer] Aline of Occupational Health - Occupational Stress QuestionnaireAnswerDate RecordedDo you feel stress - tense, restless, nervous, or anxious, or unable to sleep at night because yourmind is troubled all the time - these days?To some uorarn3802/11/2025Exercise Vital SignAnswerDate RecordedOn average, how many days [...] were you homeless or living in a group home (including now)?No02/11/2025CommentsNoSex and Gender Information ValueDate RecordedSex Assigned at QsyrwLzdtbh90/10/2023 3:43 PM EDTLegal Sex Klofmx0010/25/2022 6:52 PM EDTGender HsjlxrdmShdink75/10/2023 3:43 PM EDTSexual FznmfljbzotWfepdkkt32/10/2023 3:43 PM EDTdocumented as of this encounter Plan of Treatment Not on file documented as of this encounter Visit Diagnoses Not on filedocumented in this encounter Care Teams Team MemberRelationshipSpecialtyStart DateEnd Date Lauren Choudhary MD [address] [place] [address] PCP - GeneralFamily Medicine12/19/22 Madalyn Peterson PA [address] [place] [address] Physician AssistantNeurology1/ Enrique Guerrier MD [address] [place] [address] Referring PhysicianNeurology1/documented as of this encounter
--- OUTSIDE RECORDS SUMMARY | 2025-07-07 15:55 | XMS_ITS | Encounter Summary ---
Author Organization [facility] Address [address] [place] [address] Care Team Providers Care Director Design Name Role Phone Lauren Choudhary MD Primary Care Provider [phone] Madalyn Peterson Unavailable Enrique Guerrier MD Unavailable [phone] Encounter Details DateTypeDepartmentCare Team (Latest Contact Info)Ttwxwlnctrk95/18/2025Travel Social History Tobacco UseTypesPacks/DayYears UsedDateSmoking Tobacco: FormerCigarettes Smokeless Tobacco: NeverAlcohol UseStandard Drinks/WeekCommentsYes0 (1 standard drink = 0.6 oz pure alcohol)1-2 drinks less than monthly in the past year, Caffeine intake: 1-2 cups per [id number] Health LiteracyAnswerDate RecordedHow often do you need [...] week02/11/2025How often do you attend denominational or hoahaoism services?Never02/11/2025Do you belong to any clubs or organizations such as denominational groups, unions, fraBionym or athletic groups, or school groups?Yes 02/11/2025How often do you attend meetings of the clubs or organizations you belong to?1 to 4 times per year02/11/2025re you , , , , never , or living with a partner?Dsdkjls2002/11/2025UDIT-C AnswerDate RecordedQ1: How often do you have [...] food, housing, medical care, and heating?Not very hard02/11/2025[facility] of Occupational Health - Occupational Stress QuestionnaireAnswerDate RecordedDo you feel stress - tense, restless, nervous, or anxious, or unable to sleep at night because yourmind is troubled all the time - these days?To some epqdpj8102/11/2025Exercise Vital SignAnswerDate RecordedOn average, how many days [...] were you homeless or living in a [place] (including now)?No02/11/2025CommentsNoSex and Gender Information ValueDate RecordedSex Assigned at LqycaYbhsmk47/10/2023 3:43 PM EDTLegal Sex Sxpegc7810/25/2022 6:52 PM EDTGender LjrhkeraMnumlc13/10/2023 3:43 PM EDTSexual EbjmejnhdnyAgmceulk85/10/2023 3:43 PM EDTdocumented as of this encounter Plan of Treatment Not on file documented as of this encounter Visit Diagnoses Not on filedocumented in this encounter Care Teams Team MemberRelationshipSpecialtyStart DateEnd Date Lauren Choudhary MD [address] [place] [address] PCP - GeneralFamily Medicine12/19/22 Madalyn Peterson PA [address] [place] [address] Physician AssistantNeurology1 Enrique Guerrier MD [address] [place] [address] Referring PhysicianNeurology1/documented as of this encounter
--- OUTSIDE RECORDS SUMMARY | 2025-07-07 15:55 | XMS_ITS | Encounter Summary ---
Author Organization [facility] Address [address] [place] [address] Care Team Providers Care Shank Paperer Name Role Phone Lauren Choudhary MD Primary Care Provider [phone] Madalyn Peterson Unavailable Enrique Guerrier MD Unavailable [phone] Encounter Details DateTypeDepartmentCare Team (Latest Contact Info)Tyzhawlkdkx26/25/2025amboo flowsheet [facility] [address] [facility] [place] [address] Tiffany Park PA [address] [facility] [address] [place], [facility] Social History Tobacco UseTypesPacks/DayYears UsedDateSmoking Tobacco: FormerCigarettes Smokeless Tobacco: NeverAlcohol UseStandard Drinks/WeekCommentsYes0 (1 standard drink = 0.6 oz pure alcohol)1-2 drinks less than monthly in the past year, Caffeine intake: 1-2 cups per [id number] Health LiteracyAnswerDate RecordedHow often do you need [...] relatives?Once a week02/11/2025How often do you attend jain or gnosticist services?Never02/11/2025Do you belong to any clubs or organizations such as jain groups, unions, fraKnee Creations or athletic groups, or school groups?Yes 02/11/2025How often do you attend meetings of the clubs or organizations you belong to?1 to 4 times per year02/11/2025re you , , , , never , or living with a partner?Ctcsimw3002/11/2025UDIT-C AnswerDate RecordedQ1: How often do you have [...] housing, medical care, and heating?Not very hard02/11/2025F[place]ish Lissie of Occupational Health - Occupational Stress QuestionnaireAnswerDate RecordedDo you feel stress - tense, restless, nervous, or anxious, or unable to sleep at night because yourmind is troubled all the time - these days?To some brtksc4302/11/2025Exercise Vital SignAnswerDate RecordedOn average, how many days [...] were you homeless or living in a fpc (including now)?No02/11/2025CommentsNoSex and Gender Information ValueDate RecordedSex Assigned at BoqsfSddviq17/10/2023 3:43 PM EDTLegal Sex Jdxhpy6610/25/2022 6:52 PM EDTGender LscgbkpeHegzxl70/10/2023 3:43 PM EDTSexual CdajeyamjhrIvvzedgt08/10/2023 3:43 PM EDTdocumented as of this encounter Plan of Treatment Not on file documented as of this encounter Visit Diagnoses Not on filedocumented in this encounter Care Teams Team MemberRelationshipSpecialtyStart DateEnd Date Lauren Choudhary MD [address] [place] [address] PCP - GeneralFamily Medicine12/19/22 Madalyn Peterson PA [address] [place] [address] Physician AssistantNeurology1/ Enrique Guerrier MD [address] [place] [address] Referring PhysicianNeurology1/documented as of this encounter
[2025-07-08 20:09] LABS: Age Gdln ACOG Testing Note (.); IGP, Aptima HPV, rfx 16/18,45 Note (.)
== END 2025-07-07 15:46 | disposition home or self-care (01) ==
LOC: LAB 15:45
PROVIDERS: Visit Provider Physician Assistant
DX: Z01.419 Encounter for gynecological examination (general) (routine) without abnormal findings (principal)
CPT/HCPCS: 88175